=== PATIENT | female | born 1985 | race Caucasian/White ===

== ENCOUNTER 2024-06-04 21:02 | Emergency (ER) | payer SELFPAY ==
[2024-06-04 21:37] VITALS: BP 118/78; PULSE 106; RESP 16; TEMP 36.5; O2SAT 96
[2024-06-04 22:36] VITALS: BP 129/83; PULSE 95; RESP 15; TEMP 36.6; O2SAT 100
--- NOTE | 2024-06-05 00:23 | ED.WOUNDLAC ---
HPI - Wound/Laceration General Chief Complaint: Wound/Laceration Stated Complaint: fell into glass, lac to right arm and right knee Time Seen by Provider: 06/04/24 22:25 Source: patient Mode of arrival: ambulatory Limitations: no limitations History of Present Illness HPI narrative: This is a 39-year-old female that presents to the emergency department for laceration sustained prior to arrival. Reports she tripped and fell to some broken glass. Reports several abrasions to the right arm and right lower leg. She ripped her pain at on her right buttock is unsure if she sustained a laceration in this area. She is not up-to-date on tetanus. Related Data Home Medications Medication Instructions Recorded Confirmed No Home Medications 06/04/24 06/04/24 Allergies Allergy/AdvReac Type Severity Reaction Status Date / Time No Known Allergies Allergy Verified 06/04/24 21:41 Review of Systems Review of Systems: CONSTITUTIONAL: Denies fever SKIN: Reports laceration All systems reviewed & are unremarkable except as noted in HPI and below PMFSH Past Medical History Medical History (Updated 06/05/24 @ 00:32 by Marsha Rowan PA-C) No active medical problems Social History Social History (Updated 06/05/24 @ 00:32 by Marsha Rowan PA-C) Substance use: never Exam Narrative: GENERAL: Well-appearing, well-nourished, and in no acute distress. HEAD: Normocephalic, atraumatic. EYES: EOMI. EXTREMITIES: Normal range of motion. No edema. Superficial abrasions to the right arm. Superficial skin tear to the right lower leg SKIN: Warm, dry, no rash. NEURO: No focal deficits. Alert and oriented x3. PSYCH: Normal mood and affect Course Course Emergency Course: Patient educated on wound care Vital Signs Vital signs: Vital Signs Temperature 97.7 F 06/04/24 21:37 Pulse Rate 106 H 06/04/24 21:37 Respiratory Rate 16 06/04/24 21:37 Blood Pressure 118/78 06/04/24 21:37 Pulse Oximetry 96 06/04/24 21:37 Oxygen Delivery Room Air 06/04/24 21:37 Temperature 98 F 06/04/24 22:36 Pulse Rate 95 06/04/24 22:36 Respiratory Rate 15 06/04/24 22:36 Blood Pressure 129/83 06/04/24 22:36 Pulse Oximetry 100 06/04/24 22:36 Oxygen Delivery Room Air 06/04/24 22:36 Procedures Laceration Laceration 1: Date: 06/05/24 Time: 00:33 Site: lower extremity Side (If applicable): right Size (cm): 4 Description: other (Skin avulsion) Pre-repair: irrigated ====== Skin Level ====== ====== Subcutaneous Layer ====== ====== Muscle Layer ====== ====== Tendon Layer ====== Dressing: Wound cleansed and covered with antibiotic ointment and bandage MDM - Wound/Laceration MDM Narrative Medical decision making narrative: Patient presents to the emergency department for superficial laceration sustained after falling in a broken glass. No foreign bodies noted. Her wounds were cleansed and covered bandages. She was updated on tetanus vaccination. She is to follow up with primary provider. She was given warnings to return to the ER Differential Diagnosis Differential diagnosis: Likely laceration, abrasion and avulsion of skin Critical Care Time Critical Care Time Critical Care Time: No Discharge Plan Discharge Clinical Impression: Laceration Patient Disposition: Home, Self-Care Condition: Stable Instructions: Skin Avulsion (ED) Additional Instructions: Return to the emergency department if you experience fever, redness or swelling of your wound, abnormal drainage from your wound, or any other symptoms that are concerning to you. Apply antibiotic ointment daily. Do not soak the wound. Clean with mild soap and water daily Follow-up with your primary care doctor for wound check Prescriptions: No Action No Home Medications Follow-up/Referrals: Eamon Flores MD [Physician] -
[2024-06-05] MEDS: TETANUS,DIPHTHERIA,AC PERTUSSIS ADULT (0.5 ML) BOOSTRIX IM (00:33)
[2024-06-05 00:45] VITALS: BP 131/82; PULSE 88; RESP 16; O2SAT 99
== END 2024-06-05 01:02 | disposition home or self-care (01) ==
PROVIDERS: Emergency Provider Physician Assistant
DX: S81.811A Laceration without foreign body, right lower leg, initial encounter (principal); S50.811A Abrasion of right forearm, initial encounter; Z23 Encounter for immunization; W01.110A Fall on same level from slipping, tripping and stumbling with subsequent striking against sharp glass, initial encounter
CPT/HCPCS: 90471; 90715; 99282